=== PATIENT | male | born 1990 | race Two or more races ===

== ENCOUNTER 2021-05-12 15:34 | Emergency (ER) | payer MEDICAID ==
[~2021-05-12] VITALS: Ht 175.3 cm; Wt 119.0 kg
[2021-05-12] MEDS ORDERED: CEPH500T MT (17:58)
[2021-05-12 18:14] VITALS: BP 142/84
== END 2021-05-12 18:15 | disposition home or self-care (01) ==
LOC: ER 15:34
DX: M54.2 Cervicalgia (principal); I88.9 Nonspecific lymphadenitis, unspecified
CPT/HCPCS: 99281; 99283